=== PATIENT | male | born 1995 | race African-American/Black ===

== ENCOUNTER 2019-04-03 20:56 | Emergency (ER) | payer SELFPAY ==
[~2019-04-03] VITALS: Ht 180.3 cm; Wt 89.8 kg
[2019-04-03 21:38] VITALS: BP 118/69; Ht 180.3 cm; Wt 89.8 kg
== END 2019-04-04 01:30 | disposition home or self-care (01) ==
LOC: ED 20:56
DX: B34.9 Viral infection, unspecified (principal); R09.1 Pleurisy
CPT/HCPCS: J1885; Q0092